=== PATIENT | male | born 1985 | race Two or more races ===

== ENCOUNTER 2021-04-05 12:39 | Emergency (ER) | payer MEDICAID, OTHER ==
[~2021-04-05] VITALS: Ht 182.9 cm; Wt 90.7 kg
[2021-04-05 18:00] VITALS: BP 133/77
== END 2021-04-05 18:06 | disposition home or self-care (01) ==
LOC: ER 12:39 → EDBD 12:39 → ER 18:03
DX: S42.021A Displaced fracture of shaft of right clavicle, initial encounter for closed fracture (principal); S22.41XA Multiple fractures of ribs, right side, initial encounter for closed fracture; S70.01XA Contusion of right hip, initial encounter; R51.9 Headache, unspecified; F17.210 Nicotine dependence, cigarettes, uncomplicated; V49.49XA Driver injured in collision with other motor vehicles in traffic accident, initial encounter; Y93.89 Activity, other specified; Y92.488 Other paved roadways as the place of occurrence of the external cause; Y99.8 Other external cause status
CPT/HCPCS: 70450; 71250; 72125; 72192; 73030